=== PATIENT | female | born 1950 | race Caucasian/White ===

== ENCOUNTER 2021-06-15 11:10 | Emergency (ER) | payer OTHER, SELFPAY ==
--- NOTE | ~2021-06-15 | XR_ITS ---
EXAMINATION: XR CHEST CLINICAL INFORMATION: SOB. COMPARISON: None TECHNIQUE: Frontal view of the chest was obtained. FINDINGS: No significant abnormality is noted involving the heart, lungs, mediastinum, bony thorax or soft tissues. XR/XR chest 1V IMPRESSION: Unremarkable chest examination.
--- NOTE | ~2021-06-15 | CT_ITS ---
EXAMINATION: CT CHEST WITH CONTRAST CLINICAL INFORMATION: Chest pain COMPARISON: Chest x-ray this evening TECHNIQUE: Multidetector volumetric CT imaging of the chest was obtained after the administration of 65 mL of Omnipaque 350 intravenous contrast without immediate adverse reactions. Axial MIP volume rendering provided. Sagittal and coronal reformatted images were obtained. This CT examination was performed using dose optimization techniques as appropriate, variously including the following: *Automated exposure control *Adjustment of mA and/or kV according to patient size (this includes techniques or standardized protocols for targeted exams where dose is matched to indication/reason for exam; i.e. extremities or head) *Use of iterative reconstruction technique DLP: 254 mGy-cm FINDINGS: LUNGS: Lungs are well expanded. I do not appreciate any superimposed focal infiltrate or dense consolidation. A few tiny scattered calcified granulomas are incidentally noted bilaterally there is a nonspecific noncalcified 3 mm pulmonary nodule in the left lingula. Central airways are unremarkable MEDIASTINUM: Vascular calcification in the aorta and coronary vessels. No bulky hilar or mediastinal adenopathy. Visualized thyroid gland unremarkable. PLEURA: There is no pleural effusion. No pleural mass or thickening. AXILLA: No lymphadenopathy. UPPER ABDOMEN: Diffuse fatty infiltration of the liver OSSEOUS STRUCTURES: Multilevel degenerative changes in the spine but no acute fracture or spondylolisthesis. CT/CT chest w con IMPRESSION: No acute process seen. Tiny incidental 3 mm pulmonary nodule in the left lingula. According to the UPDATED 2017 Fleischner Society recommendations, the advised follow-up imaging for solid nodules < 6 mm is: LOW RISK PATIENT: No routine follow-up. HIGH RISK PATIENT: Optional CT at 12 months.
[2021-06-15 11:21] VITALS: BP 151/85; PULSE 82; RESP 18; TEMP 36.7; O2SAT 98; BMI 25.4
--- NOTE | 2021-06-15 11:31 | ECG_ITS ---
Test Reason : CHEST PAIN Blood Pressure : / mmHG Vent. Rate : 080 BPM Atrial Rate : 080 BPM P-R Int : 158 ms QRS Dur : 086 ms QT Int : 386 ms P-R-T Axes : 055 -11 012 degrees QTc Int : 445 ms Normal sinus rhythm Nonspecific ST abnormality Abnormal ECG No previous ECGs available Referred By: Generic ED Physician Electronically Signed By:DENA LION MD
[2021-06-15 12:29] LABS: Hematocrit 40.1 % (37-47); Hemoglobin 13.7 g/dl (12.0-16.0); Mean Corpuscular HGB Conc 34.2 g/dl (31.0-35.0); Mean Corpuscular Hemoglobin 28.9 pg (27.0-33.0); Mean Corpuscular Volume 84.6 fL (80-98); Mean Platelet Volume 10.1 fL (9.4-12.3); Platelet Count 131 X10*3/uL (160-400); Red Blood Count 4.74 X10*6/uL (4.20-5.50); Red Cell Distribution Width 12.5 % (11.0-16.0); White Blood Count 2.8 X10*3/uL (4.8-10.8)
[2021-06-15 12:58] LABS: B Type Natriuretic Peptide < 10 pg/mL (<100); Troponin-I High Sensitivity < 3.5 ng/L (<3.5-17.0)
[2021-06-15 13:03] LABS: Atypical Lymph Absolute Manual 0.1 x10*3/uL; Atypical Lymphs Percent Manual 5 % (0-6); Band Neutrophils Percent 2 % (3-5); Lymphocytes Absolute Manual 1.3 X10*3/uL (0.6-4.8); Lymphocytes Percent Manual 45 % (20-40); Monocytes Absolute Manual 0.3 X10*3/uL (0.0-1.2); Monocytes Percent Manual 9 % (2-11); Neutrophils Absolute Manual 1.1 X10*3/uL (2.2-7.9); Neutrophils Percent Manual 39 % (45-73); Platelet Estimate SLIGHTLY DECREASED (NORMAL); Platelet Morphology Comment NORMAL; RBC Morphology NORMAL
[2021-06-15 13:06] LABS: Anion Gap 12 (12-20); Blood Urea Nitrogen 11 mg/dL (9-16); Calcium 9.4 mg/dL (8.4-10.2); Carbon Dioxide 32 mmol/L (22-29); Chloride 101 mmol/L (96-108); Creatinine Clr Calc Pharmacy 57.8; Estimated Glomerular Filt Rate > 60; Glucose Random 118 mg/dL (60-115); Potassium 3.9 mmol/L (3.3-5.1); Sodium 141 mmol/L (135-145)
[2021-06-15] MEDS: 0.9 % Sodium Chloride 1,000 ML 999 ML IV (14:25)
--- NOTE | 2021-06-15 14:45 | ED.GENADULT ---
HPI - General Adult Related Data Allergies Allergy/AdvReac Type Severity Reaction Status Date / Time gluten [GLUTEN] AdvReac Intermediate UNKNOWN Verified 06/15/21 11:21 procaine [From Novocain] AdvReac Unknown SWELLING Verified 06/15/21 11:21 Review of Systems Review of Systems: Constitutional : No Weight loss, Fever, Chills, No Night Sweats, Fatigue, No Malaise ENT/Mouth : No Hearing loss, No Ear Pain, No Nasal Congestion, No Sinus Pain, No Hoarseness, No sore throat, No Rhinorrhea, No Swallowing Difficulty Eyes: No Eye Pain, No Swelling, No Redness, No Foreign Body, No Discharge, No Vision Changes Cardiovascular : No Chest Pain, No SOB, Dyspnea on Exertion, No Orthopnea, No Edema, No Palpitations Respiratory : No Cough, No Sputum, No Wheezing, No Smoke Exposure, No Dyspnea Gastrointestinal : No Nausea, No Vomiting, No Diarrhea, No Constipation, No abdominal Pain, No Hematochezia, No Melena Genitourinary : no irregular bleeding, No Dysuria, No Urinary Frequency, No Hematuria, No Urinary Incontinence, No Urgency, No Flank Pain, No Urinary Flow Changes, No Hesitancy Musculoskeletal : No joint pain, No Myalgias, No Joint Swelling Skin : No Skin Lesions, No rash Neuro : No Weakness, No Numbness, No Paresthesias, No Loss of Consciousness, No Dizziness, No Headache Psych : No Anxiety/Panic, No Depression, No SI/HI/AH/VH, No Social Issues, Heme/Lymph: No Bruising, No Bleeding,No Lymphadenopathy Endocrine : No Polyuria, No Polydipsia, No Temperature Intolerance Yes all other systems are reviewed and are negative [facility] Past Medical History Medical History (Updated 06/16/21 @ 00:01 by Alec Lyman) Asthma COVID-19 High blood pressure Social History Social History Advance Directives: No Advance Directives Information Provided: Yes Physical Exam Vital Signs: Vital Signs: Last Vital Signs Temp 98.4 F 06/15/21 20:00 Pulse 88 06/15/21 20:00 Resp 15 06/15/21 20:00 BP 144/75 H 06/15/21 20:00 Pulse Ox 97 06/15/21 20:00 Body Mass Index 25.4 Const: General: healthy appearing, no acute distress and well developed Nutritional Appearance: well nourished Orientation/consciousness: patient oriented x3 Neck: Neck: Yes normal visual inspection, Yes full ROM and Yes trachea midline Thyroid: Thyroid normal Resp: Auscultation: clear to auscultation bilaterally Cardio: Rate: regular rate Rhythm: regular rhythm GI: Inspection: Yes normal to inspection and No distended Palpation (GI): No hepatosplenomegaly present Auscultation: normal bowel sounds Skin: General skin exam: elasticity normal, turgor normal and dry skin Neuro: General: patient oriented x3 Course Course Course Narrative: 71-year-old Mauritanian speaking female is here today for complaints of low-grade fever, increased heart rate and low oxygen level since Saturday. Patient reports that she had COVID back in . Patient reports that her friend from COVID. Her symptoms are shortness of breath at the rest, malaise, will order chest x-ray, CBC, BMP, troponin, urine. Reevaluation(s) Reevaluation #1: WBC 2.8., awaiting for COVID results Reevaluation #2: COVID results negative. Patient complains of occasional chest tightness. Will repeat troponin 1st one neg. Will do chest CT with IV contrast to rule out PE. Patient is not desatting now however reports to have low O2 sats at home. Reevaluation #3: Chest CT negative for PE. Most likely viral symptoms. Spoke with patient, will discharge her home Medical Decision Making Lab Data Result diagrams: 06/15/21 12:22 06/15/21 12:22 Labs: Lab Results 06/15/21 06/15/21 06/15/21 Range/Units 12:22 12:22 12:22 WBC 2.8 L (4.8-10.8) X10*3/uL RBC 4.74 (4.20-5.50) X10*6/uL Hgb 13.7 (12.0-16.0) g/dl Hct 40.1 (37-47) % MCV 84.6 (80-98) fL MCH 28.9 (27.0-33.0) pg MCHC 34.2 (31.0-35.0) g/dl RDW 12.5 (11.0-16.0) % Plt Count 131 L (160-400) X10*3/uL MPV 10.1 (9.4-12.3) fL Immature Gran % (Auto) Cancelled Neut % (Auto) Cancelled Lymph % (Auto) Cancelled [place] % (Auto) Cancelled Eos % (Auto) Cancelled Baso % (Auto) Cancelled Lymph # (Auto) Cancelled [place] # (Auto) Cancelled Eos # (Auto) Cancelled Baso # (Auto) Cancelled Abs Immat Gran (auto) Cancelled Absolute Neuts (auto) Cancelled Absolute Nucleated RBC 0.000 (0.0-0.012) X10*3/uL Nucleated RBC % (auto) 0.0 (0.0-0.2) /100WBC Neutrophils % (Manual) 39 L (45-73) % Band Neutrophils % 2 L (3-5) % Lymphocytes % (Manual) 45 H (20-40) % Atypical Lymphs % (Man) 5 (0-6) % Monocytes % (Manual) 9 (2-11) % Abs Neuts (Manual) 1.1 L (2.2-7.9) X10*3/uL Lymphocytes # (Manual) 1.3 (0.6-4.8) X10*3/uL Atyp Lymphs # (Manual) 0.1 x10*3/uL Monocytes # (Manual) 0.3 (0.0-1.2) X10*3/uL Platelet Estimate SLIGHTLY DECREASED (NORMAL) Plt Morphology Comment NORMAL RBC Morphology NORMAL Sodium 141 (135-145) mmol/L Potassium 3.9 (3.3-5.1) mmol/L Chloride 101 (96-108) mmol/L Carbon Dioxide 32 H (22-29) mmol/L Anion Gap 12 (12-20) BUN 11 (9-16) mg/dL Creatinine 0.76 (0.5-1.4) mg/dL Estim Creat Clear Calc 57.8 Estimated GFR > 60 Random Glucose 118 H (60-115) mg/dL Calcium 9.4 (8.4-10.2) mg/dL Troponin I High Sens < 3.5 (<3.5-17.0) ng/L B-Natriuretic Peptide < 10 (<100) pg/mL Urine Color Urine Appearance Urine pH (5.0-8.0) Ur Specific [place] (1.005-1.025) Urine Protein (NEG-TRACE) MG/DL Urine Glucose (UA) (NEG) MG/DL Urine Ketones (NEG) MG/DL Urine Blood (NEG) Urine Nitrite (NEG) Ur Leukocyte Esterase (NEG) Urine RBC (0) /HPF Urine WBC (0-4) /HPF Ur Squamous Epith Cells /LPF Urine Bacteria /LPF Coronavirus (PCR) (Negative) Influenza Type A (PCR) (Negative) Influenza Type B (PCR) (Negative) RSV RNA Qual (PCR) (Negative) 06/15/21 06/15/21 06/15/21 Range/Units 14:27 15:46 17:43 WBC (4.8-10.8) X10*3/uL RBC (4.20-5.50) X10*6/uL Hgb (12.0-16.0) g/dl Hct (37-47) % MCV (80-98) fL MCH (27.0-33.0) pg MCHC (31.0-35.0) g/dl RDW (11.0-16.0) % Plt Count (160-400) X10*3/uL MPV (9.4-12.3) fL Immature Gran % (Auto) Neut % (Auto) Lymph % (Auto) [place] % (Auto) Eos % (Auto) Baso % (Auto) Lymph # (Auto) [place] # (Auto) Eos # (Auto) Baso # (Auto) Abs Immat Gran (auto) Absolute Neuts (auto) Absolute Nucleated RBC (0.0-0.012) X10*3/uL Nucleated RBC % (auto) (0.0-0.2) /100WBC Neutrophils % (Manual) (45-73) % Band Neutrophils % (3-5) % Lymphocytes % (Manual) (20-40) % Atypical Lymphs % (Man) (0-6) % Monocytes % (Manual) (2-11) % Abs Neuts (Manual) (2.2-7.9) X10*3/uL Lymphocytes # (Manual) (0.6-4.8) X10*3/uL Atyp Lymphs # (Manual) x10*3/uL Monocytes # (Manual) (0.0-1.2) X10*3/uL Platelet Estimate (NORMAL) Plt Morphology Comment RBC Morphology Sodium (135-145) mmol/L Potassium (3.3-5.1) mmol/L Chloride (96-108) mmol/L Carbon Dioxide (22-29) mmol/L Anion Gap (12-20) BUN (9-16) mg/dL Creatinine (0.5-1.4) mg/dL Estim Creat Clear Calc Estimated GFR Random Glucose (60-115) mg/dL Calcium (8.4-10.2) mg/dL Troponin I High Sens < 3.5 (<3.5-17.0) ng/L B-Natriuretic Peptide (<100) pg/mL Urine Color STRAW Urine Appearance CLEAR Urine pH 7.0 (5.0-8.0) Ur Specific [place] 1.010 (1.005-1.025) Urine Protein NEG (NEG-TRACE) MG/DL Urine Glucose (UA) NEG (NEG) MG/DL Urine Ketones NEG (NEG) MG/DL Urine Blood NEG (NEG) Urine Nitrite NEG (NEG) Ur Leukocyte Esterase TRACE H (NEG) Urine RBC 0 (0) /HPF Urine WBC 1-4 (0-4) /HPF Ur Squamous Epith Cells 1+ /LPF Urine Bacteria NONE /LPF Coronavirus (PCR) NEGATIVE (Negative) Influenza Type A (PCR) NEGATIVE (Negative) Influenza Type B (PCR) NEGATIVE (Negative) RSV RNA Qual (PCR) NEGATIVE (Negative) Discharge Plan Discharge Clinical Impression: Viral illness Patient Disposition: Home, Self-Care Instructions: Viral Syndrome (ED) Additional Instructions: Ade milton z powodu objaw?w dyskomfortu w klatce jonas, b?cresencio brzucha. Tw?j test na COVID byl negatywny. Tomografia [facility] [employer] pierlulu stephania wykazala zatoru pucnego [facility] pierlulu. Najprawdopodonbie devan oquendo. Prosze pic duzo plynow i zrobic wizyte u lekarza prowadzacego 2-3 dniach. Prosze wrocic jesli objawy sie pogorsza albo scooby bedze kendell rivero inne objawy Interventions: ED Discharge Assessment Last Done: 06/15/21 20:38 Discharge Date/Time: 06/15/21 20:38
[2021-06-15 15:11] VITALS: BP 143/69; PULSE 75; RESP 13; TEMP 36.9; O2SAT 99
[2021-06-15 15:47] VITALS: BP 138/78; PULSE 84; RESP 16; O2SAT 98
[2021-06-15 16:07] LABS: Glucose Urine UA NEG (NEG); Leukocyte Esterase Urine TRACE (NEG); Nitrite Urine NEG (NEG); UACC Culture Trigger YES; Urine Blood NEG (NEG); Urine Ketones NEG (NEG); Urine Protein NEG (NEG-TRACE)
[2021-06-15 16:12] LABS: Appearance Urine CLEAR; Color Urine STRAW
[2021-06-15 16:13] LABS: RBC Urine 0 /HPF (0); Squamous Epithelial Cell Urine 1+ /LPF
[2021-06-15 17:17] LABS: Influenza A PCR NEGATIVE (Negative); Influenza B PCR NEGATIVE (Negative); Resp Syncy Virus RNA Qual PCR NEGATIVE (Negative); SARS COV2 PCR INHOUSE NEGATIVE (Negative)
[2021-06-15 17:41] VITALS: BP 141/83; PULSE 77; RESP 16; O2SAT 99
[2021-06-15 18:20] LABS: Troponin-I High Sensitivity < 3.5 ng/L (<3.5-17.0)
[2021-06-15] MEDS: iohexoL 350 MG/ML 100 ML INFUS..BTL IV (19:08)
[2021-06-15 19:37] VITALS: BP 126/76; PULSE 84; RESP 16; O2SAT 99
[2021-06-15 20:00] VITALS: BP 144/75; PULSE 88; RESP 15; TEMP 36.9; O2SAT 97
== END 2021-06-15 20:38 | disposition home or self-care (01) ==
PROVIDERS: Nurse Practitioner Family; Emergency Provider Emergency Medicine Emergency Medical Services; PCP Student in an Organized Health Care Education/Training Program
DX: B34.9 Viral infection, unspecified (principal); Z20.822 Contact with and (suspected) exposure to COVID-19; R06.02 Shortness of breath; J45.909 Unspecified asthma, uncomplicated
CPT/HCPCS: 0241U; 36415; 71045; 71260; 80048; 81001; 81003; 83880; 84484; 85007; 85027; 87086; 93005; 96360; 99284; Q9967

== ENCOUNTER 2021-09-13 12:53 | Outpatient (REF) | payer OTHER, SELFPAY ==
--- NOTE | ~2021-09-13 | XR_ITS ---
EXAMINATION: XR FOOT, LEFT CLINICAL INFORMATION: Pain COMPARISON: None TECHNIQUE: AP, lateral, and oblique views of the left foot. FINDINGS: No acute fracture or dislocation. Small marginal osteophytes accompanying joint space narrowing of the first metatarsophalangeal joint with minimal hallux valgus. Joint spaces and articular surfaces are otherwise maintained. Small plantar calcaneal enthesophyte. Minimal Achilles enthesopathy. Soft tissues unremarkable. XR/XR foot LT min 3V IMPRESSION: No acute findings. Mild first metatarsophalangeal joint arthrosis
== END 2021-09-13 12:54 | disposition home or self-care (01) ==
LOC: HO.XRAY 12:53
PROVIDERS: PCP Student in an Organized Health Care Education/Training Program; Visit Provider Student in an Organized Health Care Education/Training Program
DX: M79.672 Pain in left foot (principal)
CPT/HCPCS: 73630

== ENCOUNTER 2021-10-10 09:59 | Outpatient (REF) | payer OTHER, SELFPAY ==
--- NOTE | ~2021-10-10 | MM_ITS ---
EXAMINATION: MM SCREENING DIGITAL BREAST TOMOSYNTHESIS, BILATERAL CLINICAL INFORMATION: Screening. Asymptomatic. The lifetime risk of breast cancer based on the Tyrer-Cuzick Model is 3%. COMPARISON: Mammography: 10/15/2015, 01/19/2014, 01/15/2013 TECHNIQUE: Digital breast tomosynthesis is performed in both the craniocaudal and mediolateral oblique views along with computer-aided detection (CAD). Synthesized 2D images are generated from the tomosynthesis. FINDINGS: There are scattered areas of fibroglandular density (ACR BI-RADS breast composition Category b). There are no significant masses, abnormal calcifications, or other abnormalities. Parenchymal pattern is similar to prior studies. No developing density. The skin contours are smooth. There is some punctate uterine artifact overlying skin right axilla on tomography. No significant changes. MM/MM tomosynthesis screening BI IMPRESSION: No mammographic evidence of malignancy. ASSESSMENT: BI-RADS 2: Benign RECOMMENDATION: Routine annual mammography screening. This patient's information was entered into a reminder system with a target due date for their next mammogram.
== END 2021-10-10 10:00 | disposition home or self-care (01) ==
LOC: HO.MAMMO 09:59
PROVIDERS: Visit Provider Student in an Organized Health Care Education/Training Program
DX: Z12.31 Encounter for screening mammogram for malignant neoplasm of breast (principal)
CPT/HCPCS: 77063; 77067

== ENCOUNTER 2023-02-04 12:03 | Outpatient (REF) | payer OTHER, SELFPAY ==
--- NOTE | ~2023-02-04 | XR_ITS ---
EXAMINATION: XR HIP, LEFT CLINICAL INFORMATION: Acute left hip pain. COMPARISON: None TECHNIQUE: Two views of the left hip. FINDINGS: Bones and soft tissues are normal. No fracture. Alignment is anatomic. Hip joint space is maintained. XR/XR hip LT min 2V IMPRESSION: Unremarkable left hip exam.
== END 2023-02-04 12:04 | disposition home or self-care (01) ==
LOC: HO.XRAY 12:03
PROVIDERS: PCP Student in an Organized Health Care Education/Training Program; Visit Provider Student in an Organized Health Care Education/Training Program
DX: M25.552 Pain in left hip (principal)
CPT/HCPCS: 73502

== ENCOUNTER 2023-12-06 14:41 | Outpatient (REF) | payer OTHER, SELFPAY | END 2023-12-06 14:42 | disposition home or self-care (01) | LOC: HO.CHCLNP 14:41 | PROVIDERS: Visit Provider Internal Medicine | DX: R35.0 Frequency of micturition (principal) | CPT/HCPCS: 87086; 87088; 87186 ==

== ENCOUNTER 2024-03-23 10:25 | Outpatient (REF) | payer OTHER, SELFPAY ==
[2024-03-23 14:01] LABS: MANUAL DIFF FLAG NO
[2024-03-23 14:14] LABS: Basophils Percent Auto 0.4 % (0-2); Eosinophils Absolute Auto 0.1 X10*3/uL (0.0-0.4); Eosinophils Percent Auto 1.9 % (0-4); Hematocrit 41.9 % (37.0-47.0); Hemoglobin 14.1 g/dl (12.0-16.0); Imm Gran Abs Auto 0.01 X10*3/uL (0.00-0.03); Imm Gran Pct Auto 0.2 % (0.0-0.4); Lymphocytes Absolute Auto 2.6 X10*3/uL (1.2-4.9); Lymphocytes Percent Auto 48.3 % (20-40); Mean Corpuscular HGB Conc 33.7 g/dl (31.0-35.0); Mean Corpuscular Hemoglobin 29.4 pg (27.0-33.0); Mean Corpuscular Volume 87.5 fL (80.0-98.0); Mean Platelet Volume 10.4 fL (9.4-12.3); Monocytes Absolute Auto 0.4 X10*3/uL (0.1-1.2); Monocytes Percent Auto 6.6 % (2-11); Neutrophils Absolute Auto 2.3 x10*3/uL (2.0-8.3); Neutrophils Percent Auto 42.6 % (45-73); Platelet Count 256 X10*3/uL (160-400); Red Blood Count 4.79 X10*6/uL (4.20-5.50); Red Cell Distribution Width 12.8 % (11.0-16.0); White Blood Count 5.3 X10*3/uL (4.8-10.8)
[2024-03-23 14:54] LABS: Alanine Aminotransferase 15 U/L (0-31); Albumin Level 4.4 g/dL (3.5-5.0); Alkaline Phosphatase 71 U/L (39-117); Anion Gap 11 (12-20); Aspartate Amino Transferase 18 U/L (5-31); Bilirubin Direct 0.2 mg/dL (0.0-0.5); Bilirubin Total 0.6 mg/dL (0.0-1.0); Blood Urea Nitrogen 16 mg/dL (9-16); Calcium 9.2 mg/dL (8.4-10.2); Carbon Dioxide 30 mmol/L (22-29); Chloride 105 mmol/L (96-108); Cholesterol 267 mg/dL (<200); Estimated Glomerular Filt Rate > 60; Glucose Random 114 mg/dL (60-115); HDL Cholesterol 58 mg/dL (>40); LDL Cholesterol Calculated 182 mg/dL (<100); Potassium 3.8 mmol/L (3.3-5.1); Sodium 142 mmol/L (135-145); Total Protein 7.3 g/dL (6.5-8.0); Triglycerides 138 mg/dL (<150)
== END 2024-03-23 10:26 | disposition home or self-care (01) ==
LOC: HO.CHCLDS 10:25
PROVIDERS: Visit Provider Student in an Organized Health Care Education/Training Program
DX: I10 Essential (primary) hypertension (principal); G25.81 Restless legs syndrome; E78.00 Pure hypercholesterolemia, unspecified
CPT/HCPCS: 36415; 80048; 80061; 80076; 85025

== ENCOUNTER 2024-06-10 13:28 | Outpatient (REF) | payer MEDICAID, OTHER, SELFPAY ==
--- NOTE | ~2024-06-10 | MM_ITS ---
EXAMINATION: MM SCREENING DIGITAL BREAST TOMOSYNTHESIS, BILATERAL CLINICAL INFORMATION: Screening. Asymptomatic. COMPARISON: Mammography: This study is compared with prior exams dating back to 2015. TECHNIQUE: Digital breast tomosynthesis is performed in both the craniocaudal and mediolateral oblique views along with computer-aided detection (CAD). Synthesized 2D images are generated from the tomosynthesis. FINDINGS: The breasts are heterogeneously dense, which may obscure small masses (ACR BI-RADS breast composition Category c). There are no significant masses, abnormal calcifications, or other abnormalities. MM/MM tomosynthesis screening BI IMPRESSION: No mammographic evidence of malignancy. ASSESSMENT: BI-RADS BI-RADS 1 - Negative RECOMMENDATION: Routine annual mammography screening. 1 year F/U This examination should not preclude the clinical evaluation of a suspicious palpable abnormality. This patient's information was entered into a reminder system with a target due date for their next mammogram.
== END 2024-06-10 13:29 | disposition home or self-care (01) ==
LOC: HO.MAMMO 13:28
PROVIDERS: PCP Student in an Organized Health Care Education/Training Program; Visit Provider Student in an Organized Health Care Education/Training Program
DX: Z12.31 Encounter for screening mammogram for malignant neoplasm of breast (principal)
CPT/HCPCS: 77063; 77067

== ENCOUNTER → 2024-06-10 14:15 | Outpatient (BNV) | payer SELFPAY | PROVIDERS: PCP Student in an Organized Health Care Education/Training Program; Visit Provider Radiology Diagnostic Radiology | DX: Z12.31 Encounter for screening mammogram for malignant neoplasm of breast (principal) | CPT/HCPCS: 77063; 77067 ==

== ENCOUNTER 2025-06-04 10:18 | Outpatient (REF) | payer SELFPAY ==
--- OUTSIDE RECORDS SUMMARY | 2025-06-04 10:47 | XMS_ITS | Clinical Summary ---
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 Name Role Phone Unavailable Primary Care Provider Unavailabl e Social History Tobacco Use Types Packs/Day Years Used Date Smoking Tobacco: Never Assessed Comments Unknown Sex and Gender Information Value Date Recorded Sex Assigned at Not on file Legal Sex Female 5:58 PM EDT Gender Identity Not on file Sexual Orientation Not on file Plan of Treatment Health Maintenance Due Date Last Done Comments Hepatitis C Virus Screening 1950 DTaP/Tdap/Td Vaccines (1 - Tdap) 1970 Pneumococcal Vaccines 50+ (1 of 1 - PCV) 2001 Zoster (Shingles) Vaccine (1 of 2) 2001 COVID-19 Vaccine ( - 2023-2 5 season) 2024 RSV Vaccine 60 years and old er and Patients (1 - 1-dose 75+ series) 2026 Hepatitis B Vaccines Aged Out No long er eligible based on patient's age to complete this topic
--- OUTSIDE RECORDS SUMMARY | 2025-06-04 10:47 | XMS_ITS | Clinical Summary ---
Author Organization [facility] Address [address] [place] [address] Care Team Providers Care Neon Sign Erector Name Role Phone Unavailable Primary Care Provider Unavailabl e Social History Tobacco Use Types Packs/Day Years Used Date Smoking Tobacco: Never Assessed Comments Unknown Sex and Gender Information Value Date Recorded Sex Assigned at Not on file Legal Sex Female 5:40 AM EST Gender Identity Not on file Sexual Orientation Not on file Plan of Treatment Health Maintenance Due Date Last Done Comments Breast Cancer Screening 1950 DTaP,Tdap,and Td Vaccines (1 - Tdap) 1970 Pneumococcal Vaccine: 50+ Ye ars (1 of 1 - PCV) 2001 Zoster Vaccines (1 of 2) 2001 COVID-19 Vaccine (1 - 2023-2 5 season) 2024 Influenza Vaccine (#1) 2025 RSV Immunization Adult Patie nts (1 - 1-dose 75+ series) 2026 HIB Vaccines Aged Out No longer eligi ble based on patient's age to complete this topic HPV Vaccines Aged Out No longer eligi ble based on patient's age to complete this topic Hepatitis A Vaccines Aged Out No long er eligible based on patient's age to complete this topic Hepatitis B Vaccines Aged Out No long er eligible based on patient's age to complete this topic IPV Vaccines Aged Out No longer eligi ble based on patient's age to complete this topic MMR Vaccines Aged Out No longer eligi ble based on patient's age to complete this topic Meningococcal ACWY Vaccine Aged Out N o longer eligible based on patient's age to complete this topic Meningococcal B Vaccine Aged Out No l onger eligible based on patient's age to complete this topic RSV Immunization Patients Un lisseth 20 months Aged Out No longer eligible b ased on patient's age to complete this topic Varicella Vaccines Aged Out No longer eligible based on patient's age to complete this topic
--- OUTSIDE RECORDS SUMMARY | 2025-06-04 10:47 | XMS_ITS | Clinical Summary ---
Author Organization [facility] Address [address] [place] [address] Phone Care Team Providers Care Dry Cleaner Name Role Phone Rebecca Castillo MD Primary Care Provider [phone] Allergies Active Allergy Reactions Criticality Noted Date Comments Aspirin Rash Low 04/09/2014 Procaine Swelling High 04/09/2014 Medications metoprolol (LOPRESSOR) 50 MG tablet Take 50 mg by mouth 2 (two) times daily. Active hydrochlorothiaz ramana (HYDRODIURIL) 25 MG tablet Take 25 mg by mouth daily. Active fish oil-omega-3 fatty acids 1,000 mg capsule Take 1 g by mouth 2 (two) times daily (0800, 1800). Active omeprazole (PRILOSEC) 20 MG capsule Take 20 mg by mouth daily. Active Active Problems Problem Noted Date Diagnosed Date Pre-syncope 04/09/2014 Social History Tobacco Use Types Packs/Day Years Used Date Smoking Tobacco: Never Assessed Comments Unknown Sex and Gender Information Value Date Recorded Sex Assigned at Not on file Legal Sex Female 2:45 AM EDT Gender Identity Not on file Sexual Orientation Not on file Last Filed Vital Signs Vital Sign Reading Time Taken Comments Blood Pressure 128/85 04/10/2014 8:16 AM EDT Pulse 85 04/10/2014 8:16 AM EDT Temperature 36.6 C (97.8 F) 04/10/2014 8:16 AM EDT Respiratory Rate 18 04/10/2014 8:16 AM EDT Oxygen Saturation 94% 04/10/2014 8:16 AM EDT Inhaled Oxygen Concentration - - Weight 60.9 kg (134 lb 4.2 oz) 04/09/2014 1:17 P M EDT Height 157.5 cm (5' 2 ) 04/09/2014 1:17 PM EDT Body Mass Index 24.56 04/09/2014 1:17 PM EDT Plan of Treatment Health Maintenance Due Date Last Done Comments HIV screening 1964 Hepatitis C screening 1969 Tetanus adult (Td q 10,TDAP once) 1971 Breast cancer screening 1991 Lipid disorder screening 1991 Colon cancer screening, Colonoscopy 1996 Pneumococcal Vaccine (50+ years) (1 of 1 - PCV) 2001 Shingles vaccine (Shingrix) (1 of 2 - Shingrix (RZV) 2 Dose Standard Series) 2001 Osteoporosis screening (bone density) 2016 Diabetes screening 04/10/2017 04/10/2014, 04/09/2014 Covid-19 vaccine series ( - 2023-25 season) 2024 Influenza vaccine 07/26/2025 RSV Immunization (1 - 1-dose 75+ series) 2026 Cervical cancer screening Discontinued Meningococcal Vaccine Aged Out No forest reshma eligible based on patient's age to complete this topic Procedures Procedure Name Priority Date/Time Associated Diagnosis Comments BASIC METABOLIC PANEL Timed 04/10/2014 4:22 AM EDT from Last 3 Months or Most Recently Relevant to Health Maintenance Results * (ABNORMAL) Basic Metabolic Panel (04/10/2014 4:22 AM EDT) Glucose 111(H) 70 - 100 mg/dL [facility] BUN 12 7 - 20 mg/dL [facility] Creatinine 0.7 0.5 - 1.2 mg/dL [facility] BUN/Creatinine Ratio 17.1 10.0 - 20.0 [facility] Anion Gap 13 7 - 16 [facility] CO2 23.2 22.0 - 30.0 mmol/L [facility] Chloride 105 96 - 106 mmol/L [facility] Sodium 141 135 - 145 mmol/L [facility] Potassium 3.4(L) 3.5 - 5.0 mmol/L [facility] Calcium 9.0 8.8 - 10.2 mg/dL [facility] Blood specimen (specimen) 04/10/2014 4:22 AM EDT Marya Bean MD LAB BLOOD ORDERABLES Final Resu lt [facility] [address] [place] [phone] from Last 3 Months or Most Recently Relevant to Health Maintenance Insurance [id number] MEDICAID [id number] MEDICAID [id number] MEDICAID [id number] MEDICAID Advance Directives * Full Interventions (Latest Code Status on File) Date Activated Date Inactivated Comments 04/09/2014 4:17 PM 04/10/2014 6:40 PM Care Teams Dry Cleaner Relationship Specialty Start Date End Date Rebecca Castillo MD [address] [place] [address] [place] [phone] PCP - General 04/09/14
--- OUTSIDE RECORDS SUMMARY | 2025-06-04 10:47 | XMS_ITS | Referral Summary ---
Author Organization [facility] Address [address] [place] [address] Care Team Providers Care Batter Out Name Role Phone Rebecca Castillo Primary Care Provider [phone] Encounters Date Type Department Care Team Description 05/17/2025 10:40 AM EDT Follow-Up [facility] Podiatry [address] [place] [address] [employer] Crewmember: Hernan Hicks, HERBERT Right foot pain (Primary Dx) from Last 3 Months Allergies Active Allergy Reactions Criticality Noted Date Comments Aspirin Rash Gluten Dyspnea High Red Yeast Rice Muscle Pain 03/11/2018 Medications FISH OIL 340-1,000 mg capsule Take 1,000 mg by mouth. 10 8 Active metoprolol tartrate (LOPRESSOR) 25 mg tablet BID 11 8 Active naproxen sodium (ALEVE) 220 mg tablet Take 220 mg by mouth every 12 hours as needed. Active albuterol (PROAIR HFA,VENTOLIN HFA) 90 mcg inhaler Inhale by mouth every 6 hours as needed for wheezing. Use with spacer. Active fluticasone propionate (FLONASE) 50 mcg/actuation nasal spray PLACE ONE TO TWO SPRAYS IN EACH NOSTRIL EVERY DAY NEEDED 1 Active loratadine (CLARITIN) 10 mg tablet Take 10 mg by mouth daily. 1 Active polyethylene glycol (GoLYTELY) solutionIndicat ions:Screen for colon cancer Take according to instructions provided by physician. 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 2022 Stress incontinence in female 2022 Complete tear of right rotator cuff 02/04/2018 Overview (02/04/2018): Added automatically from request for surgery [id number] UTI (urinary tract infection) 07/06/2016 Mixed stress and urge urinary incontinence 04/06 Intrinsic sphincter deficiency 04/06/2016 Dysuria 12/23/2015 Complete uterovaginal prolapse 12/23/2015 Overactive bladder 12/23/2015 Pain in joint of left shoulder 08/20/2014 Pain in joint of right shoulder 08/19/2014 Social History Tobacco Use Types Packs/Day Years Used Date Smoking Tobacco: Never Smokeless Tobacco: Never Tobacco Cessation:Counseling Given: Not Answered Comments:: Alcohol Use Standard Drinks/Week Comments No 0 (1 standard drink = 0.6 oz pur e alcohol) Comments No Sex and Gender Information Value Date Recorded Sex Assigned at Female 07/22/2024 3:11 PM EDT Legal Sex Female 6:31 PM EDT Gender Identity Female 07/22/2024 3:11 PM EDT Sexual Orientation Bisexual 07/22/2024 3: 11 PM EDT Last Filed Vital Signs Vital Sign Reading Time Taken Comments Blood Pressure 124/68 07/29/2024 11:25 AM EDT Pulse 68 07/29/2024 11:25 AM EDT Temperature 36.6 C (97.9 F) 07/29/2024 9:34 AM EDT Respiratory Rate 15 07/29/2024 11:25 AM EDT Oxygen Saturation 100% 07/29/2024 11:25 AM EDT Inhaled Oxygen Concentration - - Weight 63 kg (139 lb) 07/29/2024 9:34 AM EDT Height 154.9 cm (5' 1 ) 07/29/2024 9:34 AM EDT Body Mass Index 26.26 07/29/2024 9:34 AM EDT Plan of Treatment Upcoming Encounters Date Type Department Care Team (Late st Contact Info) Description 07/02/2025 12:50 PM EDT Appointment [address] [address] 07/08/2025 10:20 AM EDT Follow-Up [facility] Building Podiatry [address] [place] [address] [employer] Crewmember: Hernan Hicks, DPM [address] [place] [address] Medical Devices Implanted Type Area Call Center Recruiter Device Identifier Shelf Expiration Date Model / Serial / Lot [place] Suture Swivelock Peek Vented With Closed Eyelet [id number] - [id number] Implanted:Qty: 1 on 03/18/2018 by Migue Calderon MD at [facility] Implant Right: Shoulder [employer] 09/24/2022 AR-2324PS LC / / [id number] [place] Suture Swivelock Peek Vented With Closed Eyelet [id number] - [id number] Implanted:Qty: 1 on 03/18/2018 by Migue Calderon MD at [facility] Implant Right: Shoulder [employer] 10/24/2022 AR-2324PS LC / / [id number] [place] Suture Corkscrew With Two Fiberwire [id number] Biocomposite - [id number] Implanted:Qty: 1 on 03/18/2018 by Migue Calderon MD at [facility] Implant Right: Shoulder [employer] 09/24/2019 [id number]- / / [id number] Procedures * Due to [place] [employer] law, this organization might not be sharing negative HIV tests. Procedure Name Priority Date/Time Associated Diagnosis Comments COLONOSCOPY 07/29/2024 from Last 3 Months or Most Recently Relevant to Health Maintenance Results * Due to [place] state law, this organization might not be sharing negative HIV tests. * COLONOSCOPY (07/29/2024) Narrative Procedure Note Michael Castillo DO - 07/29/2024 10:03 AM EDT [facility] Gastroenterology Patient Name: Siobhan Ritter Procedure Date: 07/29/2024 10:03 AM Date of : 1950 Admit Type: Outpatient Age: 74 Room: [place] [address] Gender: Female Note Status: Finalized Attending MD: Michael Castillo DO Procedure: Colonoscopy Indications: High risk colon cancer surveillance: Personal history of colonicpolyps Comorbidities Providers: Michael Castillo DO, Dhruval Amin (Fellow) Referring MD: Requesting Provider: Medicines: Midazolam 5 mg IV, Fentanyl 125 micrograms IV, Diphenhydramine 25 mg IV Complications: No immediate complications. Estimated Blood Loss: Estimated blood loss was minimal. Procedure: Pre-Anesthesia Assessment: - Prior to the procedure, a History and Physicalwas performed, and patient medications and allergieswere reviewed. The patient is competent. The risks and benefits of the procedure and the sedation optionsand risks were discussed with the patient. Allquestions were answered and informed consent was obtained. Patient identification and proposed procedure were verified by the physician, the nurse and the racking technician in the pre-procedure area in theprocedure room in the endoscopy suite. Mental Status Examination: alert and oriented. AirwayExamination: normal oropharyngeal airway and neck mobility. Respiratory Examination: clear to auscultation. CV Examination: normal. Prophylactic Antibiotics: The patient does not require prophylactic antibiotics. Prior Anticoagulants: The patient has taken no anticoagulant or antiplatelet agents. ASA Grade Assessment: II - A patient with mild systemicdisease. After reviewing the risks and benefits, the patient was deemed in satisfactory condition to undergo the procedure. The anesthesia plan was to use moderate sedation / analgesia (conscious sedation).Immediately prior to administration of medications, the patient was re-assessed for adequacy to receive sedatives.The heart rate, respiratory rate, oxygen saturations, blood pressure, adequacy of pulmonary ventilation,and response to care were monitored throughout the procedure. The physical status of the patient was re-assessed after the procedure. After I obtained informed consent, the scope was passed under direct vision. Throughout theprocedure, the patient's blood pressure, pulse, and oxygen saturations were monitored continuously. The Colonoscope was introduced through the anus and advanced to the cecum, identified by appendiceal orifice and ileocecal valve. The colonoscopy was performed without difficulty. The patient tolerated the procedure well. The quality of the bowel preparation was evaluated using the BBPS (BostonBowel Preparation Scale) with scores of: Right Colon = 2 (minor amount of residual staining, small fragmentsof stool and/or opaque liquid, but mucosa seen well), Transverse Colon = 3 (entire mucosa seen well withno residual staining, small fragments of stool oropaque liquid) and Left Colon = 3 (entire mucosa seen well with no residual staining, small fragments of stoolor opaque liquid). The total BBPS score equals 8. The quality of the bowel preparation was good. The ileocecal valve, appendiceal orifice, and rectumwere photographed. Findings: Two Tracy classification Is (protruding, sessile) polyps were foundin the sigmoid colon. The polyps were 4 to 5 mm in size. These polypswere removed with a cold snare. Resection and retrieval were complete. The pathology specimen was placed into Bottle Number 1. Estimated bloodloss was minimal. A 2 mm polyp was found in the sigmoid colon. The polyp was Tracy classification Is (protruding, sessile). The polyp was removed with a jumbo cold forceps. Resection and retrieval were complete. Thepathology specimen was placed into Bottle Number 2. Estimated blood loss was minimal. External hemorrhoids were found during retroflexion. The hemorrhoids were medium-sized. Impression: - Two 4 to 5 mm polyps in the sigmoid colon,removed with a cold snare. Resected and retrieved. - One 2 mm polyp in the sigmoid colon, removed witha jumbo cold forceps. Resected and retrieved. - External hemorrhoids. Recommendation: - Discharge patient to home (ambulatory). - Resume previous diet. - Continue present medications. - Await pathology results. - Repeat colonoscopy in 5 years for surveillance. Michael Castillo DO 07/29/2024 10:57:06 AM This report has been signed electronically. 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
--- OUTSIDE RECORDS SUMMARY | 2025-06-04 10:47 | XMS_ITS | Encounter Summary ---
Author Organization [employer] Address [address] [facility] [address] [place] [address] Care Team Providers Care B Operator Name Role Phone Rebecca Castillo MD Primary Care Provider [phone] Encounter Details Date Type Department Care Team (Latest Contact Info) Description 06/04/2025 Travel Social History Tobacco Use Types Packs/Day Years Used Date Smoking Tobacco: Never Passive Smoke Exposure: Never Smokeless Tobacco: Never Alcohol Use Standard Drinks/Week Comments Never 0 (1 standard drink = 0.6 oz pur e alcohol) Depression Answer Date Recorded Patient Health Questionnaire-9 Score 1 06/04/2025 Patient Health Questionnaire-9 Score 1 06/04/2025 Last PHQ-9: Questionnaire Data Not on file 0 06/04/2025 Housing Stability Answer Date Recorded What is your housing situation today? I have cory reynoso 05/26/[address] you li ve. Do you have problems with any of the following? None of the above 05/26/2025 Food Insecurity Answer Date Recorded Within the past 12 months, y ou worried that your food would run out before you got money to buy more: Never True 05/26/2025 Within the past 12 months,th e food you bought just didn't last and you didn't have enough money to get more: Never True 12/2024 Transportation Answer Date Recorded In the past 12 months, has l ack of transportation kept you from medical appts, meetings, work or from getting things needed for daily living? No 05/26/2025 Utilities Answer Date Recorded In the past 12 months, has t he electric, gas, oil or water company threatened to shut off services in your home? No 05/26/2025 Depression Answer Date Recorded Patient Health Questionnaire-2 Score 0 06/04/2025 Internet Access Answer Date Recorded Internet Access Q1 Yes 05/26/2025 Internet Access Q2 Not on file 05/26/2025 Comments No Sex and Gender Information Value Date Recorded Sex Assigned at Female 09/24/2022 10:21 AM EDT Legal Sex Female 10:21 AM EDT Gender Identity Female 09/24/2022 10:21 AM EDT Sexual Orientation Straight 09/24/2022 10 :21 AM EDT documented as of this encounter Functional Status * Over the past 2 weeks, how often have you been bothered by any of the following problems? Question Answer Date of Assessment Author Patient Health Questionnaire -2 Score 0 06/04/2025 9:51 AM EDT Bhakti Ortiz MA * Little interest or pleasure in doing things Answer Date of Assessment Author Not at all 06/04/2025 9:51 AM EDT Idania Ortiz MA * Feeling down, depressed, or hopeless Answer Date of Assessment Author Not at all 06/04/2025 9:51 AM EDT Idania Ortiz MA * Trouble falling or staying asleep, or sleeping too much Answer Date of Assessment Author Several days 06/04/2025 9:51 AM EDT Idania Ortiz MA * Feeling tired or having little energy Answer Date of Assessment Author Not at all 06/04/2025 9:51 AM EDT Idania Ortiz MA * Poor appetite or overeating Answer Date of Assessment Author Not at all 06/04/2025 9:51 AM EDT Idania Ortiz MA * Feeling bad about yourself - or that you are a failure or have let yourself or your family down Answer Date of Assessment Author Not at all 06/04/2025 9:51 AM EDIdania Mclain MA * Trouble concentrating on things, such as reading the newspaper or watching television Answer Date of Assessment Author Not at all 06/04/2025 9:51 AM EDIdania Mclain MA * Moving or speaking so slowly that other people could have noticed? Or the opposite - being so fidgety or restless that you have been moving around a lot more than usual. Answer Date of Assessment Author Not at all 06/04/2025 9:51 AM Idania Rodriguez MA * Thoughts that you would be better off or hurting yourself in some way Answer Date of Assessment Author Not at all 06/04/2025 9:51 AM Idania Rodriguez MA * Patient Health Questionnaire-9 Score Answer Date of Assessment Author 1 06/04/2025 9:51 AM Idania Rodriguez MA * How difficult have these problems made it for you to do your work, take care of things at home, or get along with other people? Answer Date of Assessment Author Not difficult at all 06/04/2025 9:51 AM EDBhakti Hoyos MA documented as of this encounter Plan of Treatment Not on file documented as of this encounter Visit Diagnoses Not on filedocumented in this encounter Additional Health Concerns Assessment Noted Time PHQ-9 Depression Total Score: 1 06/04/20 25 9:51 AM EDT documented as of this encounter Care Teams B Operator Relationship Specialty Start Date End Date Rebecca Castillo MD [address] [place] [address] PCP - General Family Medicine 12/25/13 documented as of this encounter
[2025-06-04 15:12] LABS: Alanine Aminotransferase 24 U/L (0-31); Albumin Level 4.5 g/dL (3.5-5.0); Alkaline Phosphatase 76 U/L (39-117); Anion Gap 11 (12-20); Aspartate Amino Transferase 28 U/L (5-31); Blood Urea Nitrogen 16 mg/dL (9-16); Calcium 9.2 mg/dL (8.4-10.2); Carbon Dioxide 31 mmol/L (22-29); Chloride 103 mmol/L (96-108); Cholesterol 272 mg/dL (<200); Estimated Glomerular Filt Rate > 60; HDL Cholesterol 53 mg/dL (>40); Potassium 3.9 mmol/L (3.3-5.1); Sodium 141 mmol/L (135-145); Total Protein 7.2 g/dL (6.5-8.0); Triglycerides 303 mg/dL (<150)
== END 2025-06-04 10:19 | disposition home or self-care (01) ==
LOC: HO.CHCLDS 10:18
PROVIDERS: Visit Provider Student in an Organized Health Care Education/Training Program
DX: I10 Essential (primary) hypertension (principal)
CPT/HCPCS: 36415; 80048; 80061; 80076

== ENCOUNTER 2025-08-25 10:15 | Outpatient (REF) | payer MEDICAID, OTHER, SELFPAY ==
--- OUTSIDE RECORDS SUMMARY | 2025-08-25 11:30 | XMS_ITS | Encounter Summary ---
Author Organization [employer] Address [address] [place] [address] Care Team Providers Care Gas Operation Manager Name Role Phone Rebecca Castillo MD Primary Care Provider Encounter Details Date Type Department Care Team (Late st Contact Info) Description 07/29/2024 Orders Only [facility] CH[facility] MED & PEDS [address] [place] [address] Provider, MD [place] Social History Tobacco Use Types Packs/Day Years Used Date Smoking Tobacco: Never Passive Smoke Exposure: Never Smokeless Tobacco: Never Alcohol Use Standard Drinks/Week Comments Never 0 (1 standard drink = 0.6 oz pur e alcohol) Depression Answer Date Recorded Patient Health Questionnaire-9 Score 4 06/22/2024 Patient Health Questionnaire-9 Score 4 06/22/2024 Last PHQ-9: Questionnaire Data Not on file 0 06/22/2024 Housing Stability Answer Date Recorded What is your housing situation today? I have coryventura reynoso 03/16/[address] you li ve. Do you have problems with any of the following? None of the above 03/16/2024 Food Insecurity Answer Date Recorded Within the past 12 months, y ou worried that your food would run out before you got money to buy more: Never True 03/16/2024 Within the past 12 months,th e food you bought just didn't last and you didn't have enough money to get more: Never True Transportation Answer Date Recorded In the past 12 months, has l ack of transportation kept you from medical appts, meetings, work or from getting things needed for daily living? No 03/16/2024 Utilities Answer Date Recorded In the past 12 months, has t he electric, gas, oil or water company threatened to shut off services in your home? No 03/16/2024 Depression Answer Date Recorded Patient Health Questionnaire-2 Score 3 06/22/2024 Comments No Sex and Gender Information Value Date Recorded Sex Assigned at Female 09/24/2022 10:21 AM EDT Legal Sex Female 10:21 AM EDT Gender Identity Female 09/24/2022 10:21 AM EDT Sexual Orientation Straight 09/24/2022 10 :21 AM EDT documented as of this encounter Miscellaneous Notes * Result Encounter Note - Rebecca Castillo MD - 07/29/2024 11:02 AM EDT Every 5yrs colonoscopy documented in this encounter Plan of Treatment Not on file documented as of this encounter Procedures Procedure Name Priority Date/Time Associated Diagnosis Comments COLONOSCOPY Routine 07/29/2024 11:02 AM EDT documented in this encounter Results * Colonoscopy (07/29/2024 11:02 AM EDT) Anatomical Region Laterality Modality Endoscopy us Historical Provider ENDOSCOPY PROCEDURE ORDER EDGAR Final Result documented in this encounter Visit Diagnoses Not on filedocumented in this encounter Additional Health Concerns Assessment Noted Time PHQ-9 Depression Total Score: 4 06/22/20 24 10:01 AM EDT documented as of this encounter Care Teams Gas Operation Manager Relationship Specialty Start Date End Date Rebecca Castillo MD [address] [place] [id number] PCP - General Family Medicine 12/25/13 documented as of this encounter
--- OUTSIDE RECORDS SUMMARY | 2025-08-25 11:30 | XMS_ITS | Clinical Summary ---
Author Organization [facility] it Address [address] [place] [address] Care Team Providers Care Door Cutter Name Role Phone Unavailable Primary Care Provider [...] 2001 Zoster Vaccines (1 of 2) 2001 Depression Screening 11/25/2024 COVID-19 Vaccine (1 - 2023-2 5 season) 2025 Influenza Vaccine (#1) 2025 RSV Immunization Adult [...]
--- OUTSIDE RECORDS SUMMARY | 2025-08-25 11:30 | XMS_ITS | Encounter Summary ---
Author Organization [employer] Address [address] [place] [address] Care Team Providers Care Fryline Attendant Name Role Phone Rebecca Castillo MD Primary Care Provider [phone] Encounter Details Date Type Department Care Team (Late st Contact Info) Description 12/06/2023 Orders Only [facility] CHC MED & PEDS [address] [place], [place] [id number] Shira Johnson LPN Social History Tobacco Use Types Packs/Day Years Used Date Smoking Tobacco: Never Smokeless Tobacco: Never Alcohol Use Standard Drinks/Week Comments Never 0 (1 standard drink = 0.6 oz pur e alcohol) Housing Stability Answer Date Recorded What is your housing situation today? I have cory reynoso 09/13/[address] you li ve. Do you have problems with any of the following? None of the above 09/13/2023 Food Insecurity Answer Date Recorded Within the past 12 months, y ou worried that your food would run out before you got money to buy more: Never True 09/13/2023 Within the past 12 months,th e food you bought just didn't last and you didn't have enough money to get more: Never True Transportation Answer Date Recorded In the past 12 months, has l ack of transportation kept you from medical appts, meetings, work or from getting things needed for daily living? No 09/13/2023 Utilities Answer Date Recorded In the past 12 months, has t he electric, gas, oil or water company threatened to shut off services in your home? No 09/13/2023 Comments Unknown Sex and Gender Information Value Date Recorded Sex Assigned at Female 09/24/2022 10:21 AM EDT Legal Sex Female 10:21 AM EDT Gender Identity Female 09/24/2022 10:21 AM EDT Sexual Orientation Straight 09/24/2022 10 :21 AM EDT documented as of this encounter Plan of Treatment Not on file documented as of this encounter Visit Diagnoses Not on filedocumented in this encounter Care Teams Fryline Attendant Relationship Specialty Start Date End Date Rebecca Castillo MD [address] [place] [address] PCP - General Family Medicine 12/25/13 documented as of this encounter
--- OUTSIDE RECORDS SUMMARY | 2025-08-25 11:30 | XMS_ITS | Clinical Summary ---
Author Organization [facility] [address] [facility] Address [address] [place] [address] Phone Care Team Providers Care Sliding Joint Maker Name Role Phone Rebecca Castillo MD Primary Care Provider [phone] Allergies Active Allergy Reactions Criticality Noted Date [...] density) 2016 Diabetes screening 04/10/2017 04/10/2014, 04/09/2014 Influenza vaccine 06/25/2025 Covid-19 vaccine series ( - 2023- season) 2025 RSV Immunization (1 - 1-dose 75+ series) 2026 Cervical cancer screening Discontinued Meningococcal B Vaccine Aged Out No l onger eligible based on patient's age to complete this topic Meningococcal Vaccine Aged Out No forest reshma eligible based on patient's age to complete this topic Procedures Procedure Name Priority Date/Time Associated Diagnosis Comments BASIC METABOLIC PANEL Timed 04/10/2014 4:22 AM EDT from Last 3 Months or Most Recently Relevant to Health Maintenance Results * (ABNORMAL) Basic Metabolic Panel (04/10/2014 4:22 AM EDT) Glucose 111(H) 70 - 100 mg/dL [facility] BUN 12 7 - 20 mg/dL [facility] Creatinine 0.7 0.5 - 1.2 mg/dL [facility] BUN/Creatinine Ratio 17.1 10.0 - 20.0 [facility] Anion Gap 13 7 - 16 [facility] CO2 23.2 22.0 - 30.0 mmol/L [facility] Chloride 105 96 - 106 mmol/L [facility] Sodium 141 135 - 145 mmol/L [facility] Potassium 3.4(L) 3.5 - 5.0 mmol/L [facility] Calcium 9.0 8.8 - 10.2 mg/dL [facility] Blood specimen (specimen) 04/10/2014 4:22 AM EDT Marya Bean MD LAB BLOOD ORDERABLES Final Resu lt [facility] [address] [place] [id number] from Last 3 Months or Most Recently Relevant to Health Maintenance Insurance [id number] MEDICAID [id number] MEDICAID [id number] MEDICAID [id number] MEDICAID Advance Directives * Full Interventions (Latest Code Status on File) Date Activated Date Inactivated Comments 04/09/2014 4:17 PM 04/10/2014 6:40 PM Care Teams Sliding Joint Maker Relationship Specialty Start Date End Date Rebecca Castillo MD [address] [place], [place] [address] [address] PCP - General 04/09/14
--- OUTSIDE RECORDS SUMMARY | 2025-08-25 11:30 | XMS_ITS | Clinical Summary ---
Author Organization [facility] Address [address] [place] [address] Care Team Providers Care Fisher Clam Name Role Phone Unavailable Primary Care Provider Unavailabl e Social History Tobacco Use Types Packs/Day Years Used Date Smoking Tobacco: Never Assessed Comments Unknown Sex and Gender Information Value Date Recorded Sex Assigned at Not on file Legal Sex Female 5:58 PM EDT Gender Identity Not on file Sexual Orientation Not on file Plan of Treatment Health Maintenance Due Date Last Done Comments Advance Care Planning 1950 Hepatitis C Virus Screening 1950 DTaP/Tdap/Td Vaccines (1 - Tdap) 1970 Pneumococcal Vaccines 50+ (1 of 1 - PCV) 2001 Zoster (Shingles) Vaccine (1 of 2) 2001 COVID-19 Vaccine ( - 2023-2 5 season) 2025 RSV Vaccine 60 years and old er and Patients (1 - 1-dose 75+ series) 2026 Hepatitis B Vaccines Aged Out No long er eligible based on patient's age to complete this topic
--- OUTSIDE RECORDS SUMMARY | 2025-08-25 11:30 | XMS_ITS | Clinical Summary ---
Author Organization [employer] Address [address] [place] [address] Care Team Providers Care Embroidery Designer Name Role Phone Rebecca Castillo MD Primary Care Provider [phone] Allergies Active Allergy Reactions Criticality Noted Date Comments Amlodipine 08/22/2012 Other reaction(s): ANKLE SWELLING Gluten Meal Shortness of breath High 06/19/2024 Lidocaine 08/22/2012 Other reaction(s): THROAT SWELLING Monascus Purpureus Went Yeast Muscle Pain 03/11/2018 Medications fluticasone (Flonase) 50 MCG/ACT nasal spray INHALE ONE OR TWO SPRAYS IN EACH NOSTRIL DAILY NEEDED 03/14/20 22 Active Red Yeast Rice Extract 600 MG tablet Take 1 tablet by mouth. 02/24/20 20 Active simvastatin (Zocor) 10 MG tablet Take 1 tablet by mouth at bed time. 04/05/20 22 Active pramipexole (Mirapex) 0.25 MG tablet Take 1 tablet (0.25 mg) by mouth at bedtime. 30 tablet 11 03/23/20 24 Active loratadine (Claritin) 10 MG tabletIndications:Season al allergies TAKE ONE TABLET EVERY MORNING 30 tablet 5 01/05/20 25 Active omega-3 (Fish Oil) 1000 MG capsuleIndications:Pure hypercholesterolemia TAKE ONE CAPSULE TWICE DAILY 60 capsule 11 01/08/20 25 Active albuterol 108 (90 Base) MCG/ACT inhaler Inhale 2 puffs every 6 (six) hours if needed for wheezing. 18 g 3 06/04/20 25 Active omega-3 (Fish Oil) 1000 MG capsule Take 1 capsule (1,000 mg) by mouth 2 times daily. 90 capsule 11 07/11/20 25 Active metoprolol tartrate (Lopressor) 25 MG tablet Take 0.5 tablets (12.5 mg) by mouth 2 times daily. 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 04/06 Complete uterovaginal prolapse 12/23/2015 Overactive bladder 12/23/2015 Intermittent asthma 12/23/2014 Pain in joint of left shoulder 08/20/2014 Pain in joint of right shoulder 08/19/2014 Essential hypertension 02/18/2012 Pure hypercholesterolemia 02/18/2012 Abnormal findings on diagnostic imaging of breas t 02/18/2012 Backache 02/18/2012 Resolved Problems Problem Noted Date Diagnosed Date Resolved Date UTI (urinary tract infection) 07/06/2016 06/04/2025 Dysuria 12/23/2015 06/04/2025 Acute upper respiratory infection 02/18/2012 06/04/2025 Encounters Date Type Department Care Team Description 06/04/2025 10:00 AM EDT Office Visit [facility] [address] [place] [address] Rebecca Castillo MD Essential hypertension (Primary Dx); Mild intermittent asthma without complication; Pure hypercholesterolemia 06/04/2025 Travel 06/03/2025 Travel 05/26/2025 Patient Outreach [facility] [address], [place] [phone] Rebecca Castillo MD Pre-visit Planning (SDOH screening negative and Tobacco screening negative ) from Last 3 Months Immunizations Immunization Administration Dates Next Due Influenza Injectable Quadriv alant Preservative Free IIV4 MDCK 10/10/2021,10/14/2020 Influenza injectable quadriv alent IIV4 with preservative 10/06/2019,09/18/2018 Influenza, Split (incl. purified surface antigen ) 09/09/2013 Social History Tobacco Use Types Packs/Day Years Used Date Smoking Tobacco: Never Passive Smoke Exposure: Never Smokeless Tobacco: Never Tobacco Cessation:Counseling Given: Not Answered Alcohol Use Standard Drinks/Week Comments Never 0 [...] Orientation Straight 09/24/2022 10 :21 AM EDT Last Filed Vital Signs Vital Sign Reading Time Taken Comments Blood Pressure 160/88 06/04/2025 9:47 AM EDT Pulse 64 06/04/2025 9:47 AM EDT Temperature 36.4 C (97.6 F) 06/04/2025 9:47 AM EDT Respiratory Rate 18 06/04/2025 9:47 AM EDT Oxygen Saturation 99% 03/23/2024 9:51 AM EDT Inhaled Oxygen Concentration - - Weight 62.6 kg (138 lb) 06/04/2025 9:47 AM EDT Height 155.6 cm (5' 1.25 ) 06/04/2025 9:47 AM ED T Body Mass Index 25.86 06/04/2025 9:47 AM EDT Plan of Treatment Health Maintenance Due Date Last Done Comments CT Colonography 1950 FIT DNA/Cologuard 1950 FIT 1950 FOBT 1950 Sigmoidoscopy 1950 Alcohol/Substance Use Screening 1963 Hepatitis C Screening 1969 DTaP/Tdap/Td Vaccines (1 - Tdap) 1970 Pneumococcal Vaccine: 50+ Years (1 of 2 - PCV) 1970 Zoster Vaccines (1 of 2) 2001 RSV Patients and Patients Aged 60 years or older (1 - Risk 60-74 years 1-dose series) 2011 COVID-19 Vaccine (1 - season) 2025 Influenza Vaccine (#1) 2025 , 10/14/2020, 10/06/2019, Additional history exists SDOH Screening 05/26/2026 05/26/2025 Depression Screening 06/04/2026 06/04/2025, 06/04/20 Tobacco Screening 06/04/2026 06/04/2025 Mammogram 06/10/2026 06/10/2024, 10/10/2021 Colonoscopy 07/29/2027 07/29/2024, 06/27/2021 Colorectal Cancer Screening 07/29/2027 Lipid Panel 06/04/2030 06/04/2025, 02/24, 2022, Additional history exists HIB Vaccines Aged Out No longer eligi [...] patient's age to complete this topic RSV under 20 months Aged Out No longe r eligible based on patient's age to complete this topic Rotavirus Vaccines Aged Out No longer eligible based on patient's age to complete this topic Procedures Procedure Name Priority Date/Time Associated Diagnosis Comments BASIC METABOLIC PANEL Routine 06/04/2025 10:19 AM EDT Essential hypertension HEPATIC FUNCTION PANEL Routine 06/04/2025 10:19 AM EDT Essential hypertension LIPID PANEL, STANDARD Routine 06/04/2025 10:19 AM EDT Essential hypertension COLONOSCOPY Routine 07/29/2024 11:02 AM EDT BI MAMMOGRAM SCREENING TOMOSYNTHESIS BILATERAL Routine 06/10/2024 1:45 PM EDT from Last 3 Months or Most Recently Relevant to Health Maintenance Results * Hepatic Function Panel (06/04/2025 10:19 AM EDT) Bilirubin, Total 0.6 0.0 - 1.0 mg/dL [facility] Bilirubin, Direct 0.2 0.0 - 0.5 mg/dL [facility] Aspartate Amino Transferase 28 5 - 31 U/L [facility] Alanine Aminotransferase 24 0 - 31 U/L [facility] Total Protein 7.2 6.5 - 8.0 g/dL [facility] Albumin Level 4.5 3.5 - 5.0 g/dL [facility] Alkaline Phosphatase 76 39 - 117 U/L [facility] Blood Venous blood specimen / Unknown 06/04/2025 10:19 AM EDT 06/04/2025 2:41 PM EDT us Rebecca Castillo MD LAB BLOOD ORDERABLES Final Resul t Performing Organization Address [facility] Co de Phone Number [facility] [address] [place] [address] [phone] * (ABNORMAL) Lipid Panel, Standard (06/04/2025 10:19 AM EDT) Triglycerides 303(H) <150 mg/dL [facility] Comment:Desirable Triglyceri de: less than 150 mg/dLBorderline High Triglyceride 150-199 mg/dLHigh Triglyceride: 200-499 mg/dLVery High Triglyceride: greater than or equal to 5OO mg/dL Cholesterol 272(H) <200 mg/dL [facility] Comment:Desirable Cholestero l: less than 200 mg/dLBorderline High Cholesterol: 200-239 mg/dLHigh Cholesterol: greater than 239 mg/dL LDL Cholesterol Calculated 159(H) <100 mg/dL [facility] Comment:Desirable LDL: less than 100 mg/dLNear Optimal/Above Optimal LDL: 110- 129 mg/dLBorderline High LDL: 130-159 mg/dLHigh LDL: 160-189 mg/dLVery High LDL: greater than or equal to 190 mg/dL HDL Cholesterol 53 >40 mg/dL [facility] Comment:Desirable HDL: great er than 40 mg/dL Note: This HDL assay may give artificially low results in patients with liver disease. Blood Venous blood specimen / Unknown 06/04/2025 10:19 AM EDT 06/04/2025 2:41 PM EDT Rebecca Castillo MD LAB BLOOD ORDERABLES Final Resul t Performing Organization Address [facility]/ZIP Co de Phone Number [facility] [address] [place] [address] [phone] * (ABNORMAL) Basic Metabolic Panel (06/04/2025 10:19 AM EDT) Sodium 141 135 - 145 mmol/L [facility] Potassium 3.9 3.3 - 5.1 mmol/L [facility] Chloride 103 96 - 108 mmol/L [facility] Carbon Dioxide 31(H) 22 - 29 mmol/L [facility] Anion Gap 11(L) 12 - 20 [facility] Urea Nitrogen (BUN) 16 9 - 16 mg/dL [facility] Creatinine, Serum 0.76 0.5 - 1.4 mg/dL [facility] Estimated Glomerular Filt Rate >60 [facility] Comment:Chronic Kidney Disea se: Estimated GFR < 60 mL/min/[id number] Kidney Disease: Estimated GFR < 15 mL/min/1.73m2 Glucose 118(H) 60 - 115 mg/dL [facility] Calcium 9.2 8.4 - 10.2 mg/dL [facility] Blood Venous blood specimen / Unknown 06/04/2025 10:19 AM EDT 06/04/2025 2:41 PM EDT Rebecca Castillo MD LAB BLOOD ORDERABLES Final Resul t [facility] [address] [place] [address] [phone] * Colonoscopy (07/29/2024 11:02 AM EDT) Anatomical Region Laterality Modality Endoscopy Mil Provider ENDOSCOPY PROCEDURE ORDER EDGAR Final Result * BI Mammogram Screening Tomosynthesis Bilateral (06/10/2024 1:45 PM EDT) Anatomical Region Laterality Modality Breast Bilateral Mammography 06/10/2024 1:45 PM EDT Narrative 07/01/2024 2:38 PM EDT [facility] [address] [place] [address] Mammography Report Signed Patient: Siobhan Ritter MR#: [id number] 736 : 1950 Acct:[id number] Age/Sex: 74 / F ADM Date: 06/10/24 Loc: HO.MAMMO Attending Dr: Rebecca Castillo MD Ordering Physician: Rebecca Castillo MD Results: 1Negati ve Date of Service: 06/10/24 Follow Up: 1 Year From Orig inal Mammogram Procedure(s): MM tomosynthesis screening BI Accession Number(s): [id number] cc: Rebecca Castillo MD EXAMINATION: MM SCREENING DIGITAL BREAST TOMOSYNTHESIS, BILATERAL CLINICAL INFORMATION: Screening. Asymptomatic. COMPARISON: Mammography: This study is compared with prior exams dating back to 2015. TECHNIQUE: Digital breast tomosynthesis is performed in both the craniocaudal and mediolateral oblique views along with computer-aided detection (CAD). Synthesized 2D images are generated from the tomosynthesis. FINDINGS: The breasts are heterogeneously dense, which may obscure small masses (ACR BI-RADS breast composition Category c). There are no significant masses, abnormal calcifications, or other abnormalities. MM/MM tomosynthesis screening BI IMPRESSION: No mammographic evidence of malignancy. ASSESSMENT: BI-RADS BI-RADS 1 - Negative RECOMMENDATION: Routine annual mammography screening. 1 year F/U This examination should not preclude the clinical evaluation of a suspicious palpable abnormality. This patient's information was entered into a reminder system with a target due date for their next mammogram. Dictated By: Maryjane Mcgowan MD Signed By: <Electronically signed by Maryjane Mcgowan MD in OV> 07/01/24 1434 DD/ 1345 TD/TT: Commercial Art Instructor: Procedure Note Donotuseinterpreter, Image - 07/01/2024 [facility] [address] [place] [address] Mammography Report Signed Patient: Ryanne RitterR#: [id number] 736 : 1Acct:[id number] Age/Sex: 74 / FADM Date: 06/10/24 Loc: [facility] Attending Dr: Rebecca Castillo MD Ordering Physician: Rebecca Castillo MDResults: 1Negati ve Date of Service: 06/10/24Follow Up: 1 Year From Orig inal Mammogram Procedure(s): MM tomosynthesis screening BI Accession Number(s): [id number] cc: Rebecca Castillo MD EXAMINATION: MM SCREENING DIGITAL BREAST TOMOSYNTHESIS, BILATERAL CLINICAL INFORMATION: Screening. Asymptomatic. COMPARISON: Mammography: This study is compared with prior exams dating back to 2015. TECHNIQUE: Digital breast tomosynthesis is performed in both the craniocaudal and mediolateral oblique views along with computer-aided detection (CAD). Synthesized 2D images are generated from the tomosynthesis. FINDINGS: The breasts are heterogeneously dense, which may obscure small masses (ACR BI-RADS breast composition Category c). There are no significant masses, abnormal calcifications, or other abnormalities. MM/MM tomosynthesis screening BI IMPRESSION: No mammographic evidence of malignancy. ASSESSMENT: BI-RADS BI-RADS 1 - Negative RECOMMENDATION: Routine annual mammography screening. 1 year F/U This examination should not preclude the clinical evaluation of a suspicious palpable abnormality. This patient's information was entered into a reminder system with a target due date for their next mammogram. Dictated By: Maryjane Mcgowan MD Signed By: <Electronically signed by Maryjane Mcgowan MD in OV> 07/01/24 1434 DD/ 1345 TD/TT: Commercial Art Instructor: Rebecca Castillo MD IMG BI PROCEDURES Final Result from Last 3 Months or Most Recently Relevant to Health Maintenance Insurance [facility] Care Teams Embroidery Designer Relationship Specialty Start Date End Date Rebecca Castillo MD [address] [place] [address] [place] [address] PCP - General Family Medicine 12/25/13
--- OUTSIDE RECORDS SUMMARY | 2025-08-25 11:30 | XMS_ITS | Clinical Summary ---
Author Organization [facility] Address [address] [place] [address] Care Team Providers Care Embedded Hardware Engineer Name Role Phone Rebecca Castillo Primary Care Provider [phone] Allergies Active Allergy Reactions Criticality Noted Date [...] (02/04/2018): Added automatically from request for surgery [id number] UTI (urinary tract infection) 07/06/2016 Mixed stress and urge urinary incontinence 04/06 Intrinsic sphincter deficiency 04/06/2016 Dysuria 12/23/2015 Complete uterovaginal prolapse 12/23/2015 Overactive bladder 12/23/2015 Pain in joint of left shoulder 08/20/2014 Pain in joint of right shoulder 08/19/2014 Encounters Date Type Department Care Team Description 07/08/2025 10:20 AM EDT Follow-Up [facility] [address] [place] [id number] Certified Executive Chef: Hernan Hicks, DPM Intermetatarsal bursitis (Primary Dx); Primary localized osteoarthrosis of left ankle and foot from Last 3 Months Family History Medical History Relation Name Comments Colon cancer Brother Other Daughter No pertinent fa alon history Colon cancer Mother Relation Name Status Comments Brother (Age 67) Dx Colon C A age 66 Daughter Mother (Age 84) Colon CA Social History Tobacco Use Types Packs/Day Years [...] Care Team (Late st Contact Info) Description 01/11/2026 10:40 AM EST Follow-Up [facility] Podiatry [address], [place] [id number] Certified Executive Chef: Hernan Hicks, DPM [address] [place] [address] Health Maintenance Due Date Last Done Comments Hepatitis C Screening 1950 Pneumococcal Vaccine: 50+ Years (1 of 2 - PCV) 1970 DTaP,Tdap,and Td Vaccines (1 - Tdap) 1973 Mammogram 1991 Osteoporosis Screening 2001 Zoster Vaccines (1 of 2) 2001 RSV Vaccine (60+ years old and patients) (1 - Risk 60-74 years 1-dose series) 2011 Alcohol/Substance Use Screening 11/25/2024 Depression Screening and Follow-Up 11/25/2024 Health Care Proxy Review 11/25/2024 Social Drivers of Health Annual Screening 11/25/2024 COVID-19 Vaccine ( - season) 2025 Influenza Vaccine (#1) 2025 , 10/14/2020, 10/06/2019, Additional history exists Colonoscopy 07/29/2027 07/29/2024, 08/0 01/2021, 06/27/2021 Hepatitis B Vaccines Aged Out No long er eligible based on patient's age to complete this topic Medical Devices Implanted Type Area Balance Wheel Screw Hole Tapper Device Identifier Shelf Expiration Date Model / Serial / Lot [employer] Suture Swivelock Peek Vented With Closed Eyelet [id number] - [id number] Implanted:Qty: 1 on 03/18/2018 by Migue Calderon MD at [facility] Implant Right: Shoulder [employer] 09/24/2022 AR-2324PS / / [id number] [employer] Suture Swivelock Peek Vented With Closed Eyelet [id number] - [id number] Implanted:Qty: 1 on 03/18/2018 by Migue Calderon MD at [facility] Implant Right: Shoulder [employer] 10/24/2022 AR-2324PS / / [id number] [employer]water Suture Corkscrew With Two Fiberwire [id number] Biocomposite - [id number] Implanted:Qty: 1 on 03/18/2018 by Migue Calderon MD at [facility] Implant Right: Shoulder [employer] 09/24/2019 [id number] - / / [id number] Procedures * Due to [facility] law, this organization might not be sharing negative HIV tests. Procedure Name Priority Date/Time Associated Diagnosis Comments [place] ARTHROCENTESIS ASPIR&/INJ SMALL JT/BURSA W/O US Routine 07/08/2025 10:20 AM EDT Primary localized osteoarthrosis of left ankle and foot Intermetatarsal bursitis MRI FOOT RIGHT W WO CONTRAST Routine 07/02/2025 1:50 PM EDT Right foot pain COLONOSCOPY 07/29/2024 from Last 3 Months or Most Recently Relevant to Health Maintenance Results * Due to [place] [employer] law, this organization might not be sharing negative HIV tests. * [place] ARTHROCENTESIS ASPIR&/INJ SMALL JT/BURSA W/O US (07/08/2025 10:20 AM EDT) Hernan Salas DPM - 07/08/2025 10:20 AM EDT Hernan Goff DPM 07/08/2025 11:00 AM Left first metatarsophalangeal joint and second metatarsal bursitis right foot Indication(s): osteoarthritis and intermetatarsal bursitis Date/Time: 07/08/2025 10:20 AM Performed by: Hernan Goff DPM Authorized by: Hernan Goff DPM Consent: Patient identity confirmed: Name and with patient Verbal consent obtained: Yes Written consent obtained: Yes Risk and benefits discussed: Yes Written informed consent was obtained from the patient. Patient states understanding of procedure being performed: Yes Patient's understanding of procedure matches consent: Yes [place] Protocol: Procedure consent matches procedure scheduled: Yes All relevant documents/tests are correctly identified, labeled, and matched to patient: Yes Relevant tests/ Imaging studies available/reviewed: Yes Correct site marked: Yes Required blood products, implants, devices and special equipment available: Yes Immediately prior to the procedure a time out was called: Yes An attending physician was present for the procedure OR the procedure was performed by an Advanced Practice Provider: Yes Procedure Details: Site One: Location: great toe (left mpj) Topical Anesthetic: ethyl chloride (cold spray) Syringe Size: 3 mL 4 mg methylPREDNISolone acetate 40 mg/mL; 10 mg triamcinolone acetonide 40 mg/mL Site Two: Foot Locations 2: Right second intermetatarsal bursitis. Topical Anesthetic: ethyl chloride (cold spray) Syringe Size: 3 mL Approach: dorsal 4 mg methylPREDNISolone acetate 40 mg/mL; 10 mg triamcinolone acetonide 40 mg/mL Dressing: Band-Aid Post-procedure Details: Patient tolerance: patient tolerated the procedure well with no immediate complications Instructions: post-procedure instructions were reviewed Discharge: patient discharged from clinic in stable condition Hernan Goff DPM IN CLINIC/BEDSIDE ORDERABLES Final Result * MRI foot right with and without contrast (07/02/2025 1:50 PM EDT) Anatomical Region Laterality Modality Lower Extremities, Foot Right Magnetic Resonance 07/02/2025 12:5 0 PM EDT Impressions 07/05/2025 9:04 AM EDT 1. Mild second intermetatarsal bursitis. 2. Nonspecific, mild, thickened, edematous, enhancing capsule of the second MTP joint without associated joint effusion or erosive change. Hammertoe deformity of the second digit with mild lateral deviation of the second digit phalanges at the MTP joint. Also, mild tenosynovitis of the flexor tendons of the second digit at the MTP joint. 3. 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 4. Mild, chronic appearing sprain of the Lisfranc ligament. 5. No evidence of a plantar plate injury. No evidence of a discrete soft tissue mass. 6. Mild to moderate osteoarthritis of the TMT joints. If this radiology report contains a blank impression section, it is an incomplete radiology report. Please contact the interpreting radiologist or applicable radiology division as soon as possible to obtain the completed interpretation. Workstation ID: [id number] Narrative 07/05/2025 9:04 AM EDT INDICATION: Right forefoot pain. Evaluate for potential neuroma or bursitis. Evaluate for plantar plate tear. TECHNIQUE: Multiplanar, multisequence MRI of the right foot was performed both with and without the uneventful administration of intra-venous contrast using standard departmental protocol. COMPARISON: Correlation with right foot radiographs 07/31/2024 FINDINGS: A skin marker was placed at the plantar aspect of the forefoot at the level of the second metatarsal, distal diaphysis. Bone/Joints: No evidence of a fracture. There is marked hallux valgus with moderate to severe great toe MTP osteoarthritis including small marginal osteophytes and subchondral bone marrow edema. There is a small bunion at the medial aspect of the head of the great toe metatarsal. There is a bipartite medial sesamoid at the great toe MTP joint where there are also degenerative changes at the articulation with the first metatarsal head. There is mild lateral deviation of the second digit phalanges at the MTP joint. No joint effusion. No erosive change. There is mild thickening and enhancement of the second MTP joint capsule with associated synovial thickening of the joint. There is mild to moderate thinning of the cartilage at the TMT joints with scattered areas of subchondral bone marrow edema and overall more pronounced involving the medial greater than lateral TMT joints. There is a mild hammertoe deformity of the second digit. Ligaments: No evidence of an acute ligamentous injury. There is intermediate signal intensity in the otherwise intact Lisfranc ligament indicative of chronic appearing, mild sprain. No evidence of plantar plate injury. Tendons: There is mild tenosynovitis of the second digit flexor tendons at the level of the MTP joint. The remaining included flexor and extensor tendons are intact. Soft Tissues: There is mild second intermetatarsal bursitis. No evidence of general or asymmetric muscle atrophy. No drainable collection. Resulting Agency Comment [id number] Procedure Note Vic Magana MD - 07/05/2025 INDICATION: Right forefoot pain. Evaluate for potential neuroma orbursitis. Evaluate for plantar plate tear. TECHNIQUE: Multiplanar, multisequence MRI of the right foot was performedboth with and without the uneventful administration of intra-venouscontrast using standard departmental protocol. COMPARISON: Correlation with right foot radiographs 07/31/2024 FINDINGS: A skin marker was placed at the plantar aspect of the forefootat the level of the second metatarsal, distal diaphysis. Bone/Joints: No evidence of a fracture. There is marked hallux valguswith moderate to severe great toe MTP osteoarthritis including smallmarginal osteophytes and subchondral bone marrow edema. There is a smallbunion at the medial aspect of the head of the great toe metatarsal.There is a bipartite medial sesamoid at the great toe MTP joint wherethere are also degenerative changes at the articulation with the firstmetatarsal head. There is mild lateral deviation of the second digit phalanges at the MTPjoint. No joint effusion. No erosive change. There is mild thickeningand enhancement of the second MTP joint capsule with associated synovialthickening of the joint. There is mild to moderate thinning of the cartilage at the TMT joints withscattered areas of subchondral bone marrow edema and overall morepronounced involving the medial greater than lateral TMT joints. There ruben mild hammertoe deformity of the second digit. Ligaments: No evidence of an acute ligamentous injury. There isintermediate signal intensity in the otherwise intact Lisfranc ligamentindicative of chronic appearing, mild sprain. No evidence of plantarplate injury. Tendons: There is mild tenosynovitis of the second digit flexor tendons atthe level of the MTP joint. The remaining included flexor and extensortendons are intact. Soft Tissues: There is mild second intermetatarsal bursitis. No evidenceof general or asymmetric muscle atrophy. No drainable collection. IMPRESSION: 1. Mild second intermetatarsal bursitis. 2. Nonspecific, mild, thickened, edematous, enhancing capsule of thesecond MTP joint without associated joint effusion or erosive change.Hammertoe deformity of the second digit with mild lateral deviation of thesecond digit phalanges at the MTP joint. Also, mild tenosynovitis of theflexor tendons of the second digit at the MTP joint. 3. Marked hallux valgus with moderate to severe great toe MTPosteoarthritis as described above. 4. Mild, chronic appearing sprain of the Lisfranc ligament. 5. No evidence of a plantar plate injury. No evidence of a discrete softtissue mass. 6. Mild to moderate osteoarthritis of the TMT joints. If this radiology report contains a blank impression section, it is anincomplete radiology report. Please contact the interpreting radiologistor applicable radiology division as soon as possible to obtain thecompleted interpretation. Workstation ID: [id number] us Hernan Goff DPM IMG MRI PROCEDURES Final Res ult * COLONOSCOPY (07/29/2024) Narrative Procedure Note Michael Castillo DO - 07/29/2024 10:03 AM EDT [facility] Patient Name: Siobhan Ritter Procedure Date: 07/29/2024 10:03 AM Date of : 1950 Admit Type: Outpatient Age: 74 Room: [place] [id number] Gender: Female Note Status: Finalized Attending MD: [...] by the physician, the nurse and the outside plant technician in the pre-procedure area in theprocedure [...] Most Recently Relevant to Health Maintenance Insurance [facility] HSNO/FREE CARE Advance Directives Documents on File Type Date Recorded Patient Rn Oncology Expl anation Advance Directive 02/22/2016 12:00 AM Adva nce Care Directives Health Care Proxy 02/21/2016 12:00 AM Heal th Care Proxy Care Teams Embedded Hardware Engineer Relationship Specialty Start Date End Date Rebecca Castillo [address] [place] [phone] PCP - General 06/13/17
== END 2025-08-25 10:16 | disposition home or self-care (01) ==
LOC: HO.MAMMO 10:15
PROVIDERS: PCP Student in an Organized Health Care Education/Training Program; Visit Provider Student in an Organized Health Care Education/Training Program
DX: Z12.31 Encounter for screening mammogram for malignant neoplasm of breast (principal)
CPT/HCPCS: 77063; 77067

== ENCOUNTER → 2025-08-25 10:30 | Outpatient (BNV) | payer MEDICAID, SELFPAY | PROVIDERS: PCP Student in an Organized Health Care Education/Training Program; Visit Provider Internal Medicine | DX: Z12.31 Encounter for screening mammogram for malignant neoplasm of breast (principal) | CPT/HCPCS: 77063; 77067 ==